=== PATIENT | male | born 1955 | race Caucasian/White ===

== ENCOUNTER → 2016-04-02 | Outpatient (CLI) | payer OTHER, BC ==
[~2016-04-02] MED LIST: BENADRYL ALLERG25 M1 PO; FLEXERIL 1010 MG/TAB PO; IRON90 MG PO; LOPRESSOR 550 MG/TAB PO; NEXIUM 40MG40 MG PEG; NORCO 10-325 T1 EACH PO; PERCOCET 325 MG1 TA2 PO
[2016-04-02 12:10] VITALS: BP 137/97
== END ==
LOC: AMSURD 11:30
DX: Z01.812 Encounter for preprocedural laboratory examination (principal); M17.11 Unilateral primary osteoarthritis, right knee; Z00.00 Encounter for general adult medical examination without abnormal findings; Z12.5 Encounter for screening for malignant neoplasm of prostate; R20.2 Paresthesia of skin

== ENCOUNTER → 2017-10-28 | Outpatient (CLI) | payer BC ==
[2016-04-02 12:10] VITALS: BP 137/97
[2017-10-28 09:21] LABS: HEMATOCRIT 48.7 % (42.0-52.0); HEMOGLOBIN 16.6 g/dL (13.5-18.0); MEAN CELL VOLUME 99 fl (78-100); MEAN CORPUSCULAR HEMOGLOBIN 34 pg (27-31); MEAN CORPUSCULAR HGB CONC 34 g/dL (33-37); MEAN PLATELET VOLUME 10.9 fl (7.4-10.4); PLATELET COUNT 133 K/mm3 (130-400); RED BLOOD COUNT 4.92 M/mm3 (4.20-5.60); RED CELL DISTRIBUTION WIDTH 12.7 % (11.5-14.5)
[2017-10-28 09:55] LABS: ALBUMIN 4.1 g/dL (3.5-5.0); BUN/CREATININE RATIO 16.1 (6.0-26.0); CALCIUM 9.2 mg/dL (8.4-10.2); LYMPHOCYTE 16 % (20-51); MONOCYTE 16 % (3-10); NEUTROPHILS 65 % (42-75); TOTAL BILIRUBIN 1.6 mg/dL (0.2-1.3); TOTAL PROTEIN 7.2 g/dL (6.3-8.2)
[2017-10-28 10:46] LABS: URINE APPEARANCE CLEAR; URINE BILIRUBIN NEGATIVE (NEGATIVE); URINE BLOOD NEGATIVE (NEGATIVE); URINE COLOR YELLOW; URINE GLUCOSE NEGATIVE (NEGATIVE); URINE KETONE NEGATIVE (NEGATIVE); URINE LEUKOCYTE ESTERASE NEGATIVE (NEGATIVE); URINE MUCUS PRESENT (NOT PRESENT); URINE NITRATE NEGATIVE (NEGATIVE); URINE PROTEIN(semi-quant) NEGATIVE (NEGATIVE); URINE UROBILINOGEN NORMAL (NORMAL); URINE WBC 0-1 /hpf (0-3)
[2017-10-28 10:47] LABS: ERYTHROCYTE SEDIMENTATION RATE 1 mm/hr (0-20)
[2017-10-28 22:28] LABS: TESTOSTERONE 531 ng/dL (221-716)
== END ==
LOC: LAB 08:35
PROVIDERS: Internal Medicine
DX: Z12.5 Encounter for screening for malignant neoplasm of prostate (principal); Z00.00 Encounter for general adult medical examination without abnormal findings; Z12.11 Encounter for screening for malignant neoplasm of colon; R20.2 Paresthesia of skin

== ENCOUNTER → 2018-12-16 | Outpatient (CLI) | payer BC ==
[2016-04-02 12:10] VITALS: BP 137/97
== END ==
LOC: RAD 09:30
DX: M48.02 Spinal stenosis, cervical region (principal); M46.82 Other specified inflammatory spondylopathies, cervical region; M50.222 Other cervical disc displacement at C5-C6 level; M50.221 Other cervical disc displacement at C4-C5 level; M50.21 Other cervical disc displacement, high cervical region; W19.XXXA Unspecified fall, initial encounter

== ENCOUNTER → 2021-04-25 | Outpatient (CLI) | payer MEDICARE | LOC: LAB 14:44 | DX: U07.1 COVID-19 (principal); J01.90 Acute sinusitis, unspecified ==

== ENCOUNTER → 2021-10-08 | Outpatient (CLI) | payer MEDICARE ==
[2021-10-08 10:20] LABS: BASO # 0.05 K/mm3 (0.02-0.10); EOS # 0.35 K/mm3 (0.04-0.40); HEMATOCRIT 47.5 % (42.0-52.0); HEMOGLOBIN 16.6 g/dL (13.5-18.0); LYMPH# 1.78 K/mm3 (1.50-4.00); MEAN CELL VOLUME 100 fl (78-100); MEAN CORPUSCULAR HEMOGLOBIN 35 pg (27-31); MEAN CORPUSCULAR HGB CONC 35 g/dL (33-37); MEAN PLATELET VOLUME 10.5 fl (7.4-10.4); MONO # 0.81 K/mm3 (0.20-0.80); NEU # 2.84 K/mm3 (1.40-6.50); PLATELET COUNT 137 K/mm3 (130-400); RED BLOOD COUNT 4.76 M/mm3 (4.20-5.60); RED CELL DISTRIBUTION WIDTH 12.1 % (11.5-14.5); WHITE BLOOD COUNT 5.9 K/mm3 (4.8-10.8)
[2021-10-08 10:52] LABS: ALBUMIN 4.4 g/dL (3.4-4.8); POTASSIUM 4.3 mmol/L (3.5-5.1)
[2021-10-08 10:53] LABS: CALCIUM 10.6 mg/dL (8.3-10.5)
[2021-10-08 10:54] LABS: TOTAL PROTEIN 7.5 g/dL (6.2-8.1)
[2021-10-08 10:56] LABS: TOTAL BILIRUBIN 0.8 mg/dL (0.2-1.2)
[2021-10-08 11:01] LABS: MAGNESIUM 1.59 mg/dL (1.60-2.60)
[2021-10-08 11:29] LABS: ERYTHROCYTE SEDIMENTATION RATE 4 mm/hr (0-20)
== END ==
LOC: LAB 09:46
PROVIDERS: Internal Medicine
DX: Z12.5 Encounter for screening for malignant neoplasm of prostate (principal); Z12.11 Encounter for screening for malignant neoplasm of colon; I10 Essential (primary) hypertension; I25.10 Atherosclerotic heart disease of native coronary artery without angina pectoris; H32 Chorioretinal disorders in diseases classified elsewhere; M54.16 Radiculopathy, lumbar region; K21.9 Gastro-esophageal reflux disease without esophagitis; Z28.9 Immunization not carried out for unspecified reason

== ENCOUNTER → 2021-10-12 | Outpatient (CLI) | payer MEDICARE | LOC: RAD 07:46 | DX: K76.0 Fatty (change of) liver, not elsewhere classified (principal); R89.0 Abnormal level of enzymes in specimens from other organs, systems and tissues ==

== ENCOUNTER → 2021-10-25 | Outpatient (CLI) | payer MEDICARE | LOC: RAD 09:32 | DX: M19.072 Primary osteoarthritis, left ankle and foot (principal); M77.8 Other enthesopathies, not elsewhere classified ==

== ENCOUNTER → 2023-04-02 | Outpatient (CLI) | payer MEDICARE ==
[~2023-04-02] MED LIST changes: +ASPIRIN E.C. 8181 MG; +ATORVASTATIN CA80 MG PO; +CENTRUM ADULTS1 EACH PO; +CLOPIDOGREL PO; +HYGROTON 2525 MG/TAB PO; +LOSARTAN POTASS50 M1 PO; +OMEGA 3 PO; +OSTEO BI-FLEX1 EAC1 PO; +ZINC50 M4 PO
== END ==
LOC: RAD 08:07
DX: R74.01 Elevation of levels of liver transaminase levels (principal)

== ENCOUNTER → 2023-09-30 | Outpatient (CLI) | payer MEDICARE ==
[~2023-09-30] MED LIST changes: +BENZONATATE100 M2 PO; +CYCLOBENZAPRINE10 M1 PO; +Gadoterate 20 ML VIAL IV ONE; +LIDODERM1 EACH TP
== END ==
LOC: RAD 14:06
DX: M48.062 Spinal stenosis, lumbar region with neurogenic claudication (principal)
CPT/HCPCS: A9575

== ENCOUNTER → 2023-10-27 | Outpatient (CLI) | payer MEDICARE ==
[~2023-10-27] MED LIST changes: -Gadoterate 20 ML VIAL IV ONE
[2023-10-27 10:11] LABS: BASO # 0.03 K/mm3 (0.02-0.10); EOS % 1.9 % (0.0-4.0); HEMATOCRIT 46.6 % (42.0-52.0); HEMOGLOBIN 15.5 g/dL (13.5-18.0); LYMPH# 3.86 K/mm3 (1.50-4.00); MEAN CELL VOLUME 102 fl (78-100); MEAN CORPUSCULAR HEMOGLOBIN 34 pg (27-31); MEAN CORPUSCULAR HGB CONC 33 g/dL (33-37); MEAN PLATELET VOLUME 10.1 fl (7.4-10.4); MONO # 1.12 K/mm3 (0.20-0.80); NEU # 5.29 K/mm3 (1.40-6.50); PLATELET COUNT 125 K/mm3 (130-400); RED BLOOD COUNT 4.59 M/mm3 (4.20-5.60); RED CELL DISTRIBUTION WIDTH 13.1 % (11.5-14.5); WHITE BLOOD COUNT 10.6 K/mm3 (4.8-10.8)
[2023-10-27 10:18] LABS: ALBUMIN 4.1 g/dL (3.4-4.8)
[2023-10-27 10:19] LABS: CALCIUM 9.7 mg/dL (8.3-10.5)
[2023-10-27 10:20] LABS: TOTAL PROTEIN 6.5 g/dL (6.2-8.1)
[2023-10-27 10:22] LABS: TOTAL BILIRUBIN 1.2 mg/dL (0.2-1.2)
[2023-10-27 10:28] LABS: MAGNESIUM 1.68 mg/dL (1.60-2.60)
== END ==
LOC: LAB 09:58
PROVIDERS: Internal Medicine
DX: I25.10 Atherosclerotic heart disease of native coronary artery without angina pectoris (principal); R73.9 Hyperglycemia, unspecified